=== PATIENT | male | born 1980 | race Caucasian/White ===

== ENCOUNTER → 2016-09-06 | Day surgery (SDC) | payer BC, OTHER ==
[~2016-09-06] MED LIST: Diphtheria,Pertussis(Acell),Tetanus Vaccine 0.5 ML SDV inactive IM ONE; HYDROmorphone 0.5 MG/0.5 ML Syringe IM ONE; Ketorolac 30 MG/ML SDV IVPUSH PRN; Lactated Ringers 1,000 ML ONE; Lidocaine 1% 4 ML ONE; Midazolam 1 MG/ML 2 ML SDV ONE; Ondansetron 4 MG/2 ML SDV ONE; Propofol 200 MG/20 ML SDV ONE; Rocuronium 50 MG/5 ML Vial ONE; Sodium Chloride 0.9% 10 ML Syringe FLUSH PRN; ceFAZolin 1 GM Vial ONE; ceFAZolin 1 GM in Premix Bag 1 BAG IV ONE; fentaNYL 250 MCG/5 ML SDV IVPUSH PRN; fentaNYL 250 MCG/5 ML SDV ONE
--- NOTE | 2016-09-06 15:07 | EDM.PDOC ---
ED HPI Skin/Rash - General Chief Complaint: Laceration Stated Complaint: RIGHT ARM INJURY Time Seen by Provider: 09/06/16 14:50 Source: Reports: Patient History Limitations: Reports: No limitations - History of Present Illness INITIAL COMMENTS - FREE TEXT/NARRATIVE: Patient is a 35-year-old male who presents to the ED complaining of a deep laceration to the medial aspect of the right forearm. 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 States while attempting to catch himself the injured arm fell on a piece of metal used for grain bins causing the deep laceration. States the laceration bled for quite some time controlled with dressing and direct pressure. Patient denies any sensory/motor deficits distally. Has additional small laceration to the olecranon with bleeding controlled. Notes some bony tenderness. Tetanus status is not up to date. Location, Skin: Reports: other (right medial forearm) Quality: Reports: Ache, Sharp, Throbbing Severity: moderate Known Identified Source: yes Place of Occurrence: work Recent Medical Care: no Treatments SCIENTIFIC ARTIST: Reports: Dressing(s) - Related Data Allergies Allergy/AdvReac Type Severity Reaction Status Date / Time No Known Allergies Allergy Verified 09/06/16 14:27 Home Meds: Ambulatory Orders Medication Instructions Recorded Confirmed Omeprazole 40 mg PO DAILY 06/11/16 09/06/16 Prazosin [Minpress] 1 mg PO DAILY 06/11/16 09/06/16 traMADol [Ultram] 50 mg PO Q8H 06/11/16 09/06/16 Antidepressant 1 tab PO DAILY 09/06/16 09/06/16 Cyclobenzaprine [Flexeril] 10 mg PO BEDTIME 09/06/16 09/06/16 Past Medical History HEENT History: Reports: Impaired vision Respiratory History: Reports: Bronchitis, recurrent Genitourinary History: Reports: Other (see below) Other Genitourinary History: states only one kidney working Musculoskeletal History: Reports: Back pain, chronic, SLE, Other (see below) Other Musculoskeletal History: Scoliosis Psychiatric History: Reports: Anxiety, Depression, PTSD Dermatologic History: Reports: Eczema, Psoriasis - Past Surgical History GI Surgical History: Reports: Hernia, abdominal, Hernia, inguinal Male Surgical History: Reports: Other (see below) Other Male Surgeries/Procedures: detached left kidney, 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 ) Neurological: Denies: Numbness, Tingling ED EXAM, SKIN/RASH Exam: See Below Exam Limited By: No limitations General Appearance: alert, WD/WN, no apparent distress Ears: hearing grossly normal Nose: normal inspection Throat/Mouth: Normal voice, No airway compromise Neck: normal inspection Respiratory/Chest: no respiratory distress, lungs clear, normal breath sounds Cardiovascular: normal peripheral pulses, regular rate, rhythm Extremities: other (Patient is a deep 16 cm laceration to the right medial forearm involving the body of flexor digitorum super facialis. Patient able to flex and extend his hand at the wrist along with full extension. In addition is able to flex and extend his fingers fully with no animality is noted. He has no bony point tenderness. Approximately 2-3 cm laceration to the olecranon. ) Neurological: alert, oriented, normal cognition, no motor/sensory deficits Psychiatric: normal affect, normal mood Skin: Warm, Dry, Intact, Normal color Course - Vital Signs Last Recorded V/S: Last Vital Signs Temp 207.0 F H 09/06/16 18:21 Pulse 81 09/06/16 17:48 Resp 18 09/06/16 18:21 BP 134/87 09/06/16 18:21 Pulse Ox 96 09/06/16 18:21 - Orders/Labs/Meds Orders: Active Orders 24 hr Category Date Time Status Communication Order [RC] ROUTINE Care 09/06/16 17:44 Active Cooling Warming Measures [RC] ASDIRECTED Care 09/06/16 17:44 Active Notify Provider [RC] ASDIRECTED Care 09/06/16 17:44 Active Oxygen Therapy [RC] ASDIRECTED Care 09/06/16 17:44 Active Peripheral IV Care [RC] . DIRECTED Care 09/06/16 15:01 Active Pulse Oximetry [RC] ASDIRECTED Care 09/06/16 17:44 Active Ready for Discharge [RC] PER UNIT ROUTINE Care 09/06/16 17:49 Active Vaccines to be Administered [RC] PER UNIT ROUTINE Care 09/06/16 15:01 Active Vital Signs [RC] Q15M Care 09/06/16 17:44 Active Elbow Min 3V Rt [CR] Stat Exams 09/06/16 15:25 Taken HEMOGLOBIN/HEMATOCRIT,HH [HEME] Routine Lab 09/06/16 17:21 Ordered Ketorolac [Toradol] Med 09/06/16 17:45 Active 30 mg IVPUSH ONETIME PRN fentaNYL [Sublimaze] Med 09/06/16 17:45 Active 50 mcg IVPUSH Q5M PRN Peripheral IV Insertion Adult [OM.PC] Routine Oth 09/06/16 15:00 Ordered Schedule Procedure [COMM] Stat Oth 09/06/16 16:20 Ordered Medication Orders Fentanyl (Sublimaze) 50 mcg IVPUSH Q5M PRN PRN Reason: PAIN Ketorolac Tromethamine (Toradol) 30 mg IVPUSH ONETIME PRN PRN Reason: Pain Meds: Medications Generic Name Dose Route Start Last Admin Trade Name Freq PRN Reason Stop Dose Admin Fentanyl 50 mcg 09/06/16 17:45 Sublimaze IVPUSH Q5M PRN PAIN Ketorolac Tromethamine 30 mg 09/06/16 17:45 Toradol IVPUSH ONETIME PRN Pain Discontinued Medications Generic Name Dose Route Start Last Admin Trade Name Freq PRN Reason Stop Dose Admin Bupivacaine HCl Confirm 09/06/16 16:57 09/06/16 17:40 Marcaine 0.5% Administered 09/06/16 16:58 7 ml Dose Administration 30 ml .ROUTE .STK-MED ONE Cefazolin Sodium Confirm 09/06/16 16:58 Ancef Administered 09/06/16 16:59 Dose 1 gm .ROUTE .STK-MED ONE Diphtheria/Tetanus/Acell Pertussis 0.5 ml 09/06/16 15:00 09/06/16 15:14 Boostrix IM 09/06/16 15:01 0.5 ml .ONCE ONE Administration Fentanyl Confirm 09/06/16 16:22 Sublimaze Administered 09/06/16 16:23 Dose 250 mcg .ROUTE .STK-MED ONE Hydromorphone HCl 0.5 mg 09/06/16 15:00 09/06/16 15:17 Dilaudid IM 09/06/16 15:01 0.5 mg ONETIME ONE Administration Cefazolin Sodium/Dextrose 1 gm 50 mls @ 100 mls/hr 09/06/16 15:13 09/06/16 15 :31 / Premix IV 09/06/16 15:42 100 mls/hr ONETIME ONE Administration Lidocaine HCl Confirm 09/06/16 16:22 Xylocaine-Mpf 1% Administered 09/06/16 16:23 Dose 4 mls @ as directed .ROUTE .STK-MED ONE Lactated Ringer's Confirm 09/06/16 16:58 Ringers, Lactated Administered 09/06/16 16:59 Dose 1,000 mls @ as directed .ROUTE .STK-MED ONE Lactated Ringer's Confirm 09/06/16 17:28 Ringers, Lactated Administered 09/06/16 17:29 Dose 1,000 mls @ as directed .ROUTE .STK-MED ONE Midazolam HCl Confirm 09/06/16 16:22 Versed 1 Mg/Ml Administered 09/06/16 16:23 Dose 2 mg .ROUTE .STK-MED ONE Ondansetron HCl Confirm 09/06/16 16:21 Zofran Administered 09/06/16 16:22 Dose 4 mg .ROUTE .STK-MED ONE Propofol Confirm 09/06/16 16:21 Diprivan 20 Ml Administered 09/06/16 16:22 Dose 200 mg .ROUTE .STK-MED ONE Propofol Confirm 09/06/16 17:01 Diprivan 20 Ml Administered 09/06/16 17:02 Dose 200 mg .ROUTE .STK-MED ONE Propofol Confirm 09/06/16 17:27 Diprivan 20 Ml Administered 09/06/16 17:28 Dose 200 mg .ROUTE .STK-MED ONE Rocuronium [place] Confirm 09/06/16 16:21 Zemuron Administered 09/06/16 16:22 Dose 50 mg .ROUTE .STK-MED ONE Sodium Chloride 10 ml 09/06/16 15:00 09/06/16 15:33 Saline Flush FLUSH 09/06/16 19:00 10 ml ASDIRECTED PRN Administration Keep Vein Open - Re-Assessments/Exams Free Text/Narrative Re-Assessment/Exam: Order a peripheral IV with Dilaudid 0.5 mg IV. Discussed case with Dr. 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 He will be here at 1600 hours to evaluate the lacerations and determine if patient needs to go to surgery or not to close. Requested IV antibiotics. I have ordered Ancef 1 g IV. X-ray of the right elbow obtained with questionable avulsion fracture present. Final interpretation pending. 09/06/16 15:13 evaluated the patient in the E.D. and has deemed it necessary to take the patient to the OR to surgically repair laceration. Patient went to the surgery at approximately 1625. Departure - Departure Time of Disposition: 16:25 Disposition: DC/Tfer to Critical Access [facility] Clinical Impression: Laceration of forearm, right Qualifiers: Encounter type: initial encounter Qualified Code(s): S51.811A - Laceration without foreign body of right forearm, initial encounter - My Orders Last 24 Hours: My Active Orders 09/06/16 15:00 Peripheral IV Insertion Adult [OM.PC] Routine 09/06/16 15:01 Peripheral IV Care [RC] . DIRECTED Vaccines to be Administered [RC] PER UNIT ROUTINE 09/06/16 15:25 Elbow Min 3V Rt [CR] Stat - Assessment/Plan Last 24 Hours: My Active Orders 09/06/16 15:00 Peripheral IV Insertion Adult [OM.PC] Routine 09/06/16 15:01 Peripheral IV Care [RC] . DIRECTED Vaccines to be Administered [RC] PER UNIT ROUTINE 09/06/16 15:25 Elbow Min 3V Rt [CR] Stat
[2016-09-06] MEDS: Bupivacaine 0.5% 30 ML SDV ONE ×2 (17:22→17:40)
--- NOTE | 2016-09-06 17:46 | PCM.POSTAN ---
POST ANESTHESIA ASSESSMENT - MENTAL STATUS Mental Status: somnolent - VITAL SIGNS Pulse Rate: 81 SaO2: 90 Resp Rate: 11 Blood Pressure: 122/61 Temperature: 97.1 C - RESPIRATORY Respiratory Status: respiratory rate WNL, airway patent, O2 saturation stable, supplemental oxygen - CARDIOVASCULAR CV Status: pulse rate WNL, blood pressure stable - GASTROINTESTINAL GI Status: no symptoms - PAIN Pain Score: 0 - POST OP HYDRATION Hydration Status: adequate & stable - OBSERVATIONS Free Text/Narrative:: no anesthesia complications noted
--- NOTE | 2016-09-06 17:48 | PCM.OPNOTE ---
- General Post-Op/Procedure Note Date of Surgery/Procedure: 09/06/16 Operative Procedure(s): repair of laceration of the rt arm Pre Op Diagnosis: laceration of the rt forearm and into the flexor carpi ulnaris Post-Op Diagnosis: Same Anesthesia Technique: MAC Primary Surgeon: James Thomas EBL in mLs: 0 Complications: None Condition: Good
--- NOTE | 2016-09-06 17:48 | PCM.PREANE ---
Preanesthetic Assessment - Anesthesia/Transfusion/Family Hx Anesthesia History: Prior Anesthesia Without Reaction Family History of Anesthesia Reaction: No Transfusion History: No Prior Transfusion(s) - Review of Systems General: No Symptoms Pulmonary: No Symptoms Cardiovascular: No Symptoms Gastrointestinal: No symptoms Neurological: Numbness (right arm) Other: Reports: None - Physical Assessment NPO Status Date: 09/06/16 NPO Status Time: 18:30 Pulse: 81 O2 Sat by Pulse Oximetry: 90 Respiratory Rate: 11 Blood Pressure: 122/61 Temperature: 97.1 C Vital Signs: Last Vital Signs Temp 97.1 C H 09/06/16 17:46 Pulse 81 09/06/16 17:46 Resp 11 L 09/06/16 17:46 BP 122/61 09/06/16 17:46 Pulse Ox 90 L 09/06/16 17:46 Height: 1.88 m Weight: 73.028 kg ASA Class: 2E Mental Status: Alert & Oriented x3 Dentition: Reports: Normal Dentition Thyro-Mental Finger Breadths: 3 Mouth Opening Finger Breadths: 3 ROM/Head Extension: Full Lungs: Clear to auscultation, Normal respiratory effort Cardiovascular: Regular Rate, Regular Rhythm, No Murmurs - Allergies Allergies/Adverse Reactions: Allergies Allergy/AdvReac Type Severity Reaction Status Date / Time No Known Allergies Allergy Verified 09/06/16 14:27 - Blood Blood Available: No Product(s) Available: None - Anesthesia Plan Pre-Op Medication Ordered: None - Acknowledgements Anesthesia Type Planned: MAC Pt an Appropriate Candidate for the Planned Anesthesia: Yes Alternatives and Risks of Anesthesia Discussed w Pt/Guardian: Yes Pt/Guardian Understands and Agrees with Anesthesia Plan: Yes PreAnesthesia Questionnaire HEENT History: Reports: Impaired vision Respiratory History: Reports: Bronchitis, recurrent Genitourinary History: Reports: Other (see below) Other Genitourinary History: states only one kidney working Musculoskeletal History: Reports: Back pain, chronic, SLE, Other (see below) Other Musculoskeletal History: Scoliosis Psychiatric History: Reports: Anxiety, Depression, PTSD Dermatologic History: Reports: Eczema, Psoriasis - Past Surgical History GI Surgical History: Reports: Hernia, abdominal, Hernia, inguinal Male Surgical History: Reports: Other (see below) Other Male Surgeries/Procedures: detached left kidney, 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 - SUBSTANCE USE Smoking Status *Q: Current Every Day Smoker Tobacco Use Within Last Twelve Months: Cigarettes Days Per Week of Alcohol Use: 0 Recreational Drug Use History: No - HOME MEDS Home Medications: Home Meds Omeprazole 40 mg PO DAILY 06/11/16 [History] Prazosin [Minpress] 1 mg PO DAILY 06/11/16 [History] traMADol [Ultram] 50 mg PO Q8H 06/11/16 [History] Antidepressant 1 tab PO DAILY 09/06/16 [History] Cyclobenzaprine [Flexeril] 10 mg PO BEDTIME 09/06/16 [History] - CURRENT (IN HOUSE) MEDS Current Meds: Current Medications Fentanyl (Sublimaze) 50 mcg IVPUSH Q5M PRN PRN Reason: PAIN Ketorolac Tromethamine (Toradol) 30 mg IVPUSH ONETIME PRN PRN Reason: Pain Sodium Chloride (Saline Flush) 10 ml FLUSH ASDIRECTED PRN PRN Reason: Keep Vein Open Stop: 09/06/16 19:00 Last Admin: 09/06/16 15:33 Dose: 10 ml Discontinued Medications Bupivacaine HCl (Marcaine 0.5%) Confirm Administered Dose 30 ml .ROUTE .STK-MED ONE Stop: 09/06/16 16:58 Last Admin: 09/06/16 17:22 Dose: 30 ml Cefazolin Sodium (Ancef) Confirm Administered Dose 1 gm .ROUTE .STK-MED ONE Stop: 09/06/16 16:59 Diphtheria/Tetanus/Acell Pertussis (Boostrix) 0.5 ml IM .ONCE ONE Stop: 09/06/16 15:01 Last Admin: 09/06/16 15:14 Dose: 0.5 ml Fentanyl (Sublimaze) Confirm Administered Dose 250 mcg .ROUTE .STK-MED ONE Stop: 09/06/16 16:23 Hydromorphone HCl (Dilaudid) 0.5 mg IM ONETIME ONE Stop: 09/06/16 15:01 Last Admin: 09/06/16 15:17 Dose: 0.5 mg Cefazolin Sodium/Dextrose 1 gm (/ Premix) 50 mls @ 100 mls/hr IV ONETIME ONE Stop: 09/06/16 15:42 Last Admin: 09/06/16 15:31 Dose: 100 mls/hr Lidocaine HCl (Xylocaine-Mpf 1%) Confirm Administered Dose 4 mls @ as directed .ROUTE .STK-MED ONE Stop: 09/06/16 16:23 Lactated Ringer's (Ringers, Lactated) Confirm Administered Dose 1,000 mls @ as directed .ROUTE .STK-MED ONE Stop: 09/06/16 16:59 Lactated Ringer's (Ringers, Lactated) Confirm Administered Dose 1,000 mls @ as directed .ROUTE .STK-MED ONE Stop: 09/06/16 17:29 Midazolam HCl (Versed 1 Mg/Ml) Confirm Administered Dose 2 mg .ROUTE .STK-MED ONE Stop: 09/06/16 16:23 Ondansetron HCl (Zofran) Confirm Administered Dose 4 mg .ROUTE .STK-MED ONE Stop: 09/06/16 16:22 Propofol (Diprivan 20 Ml) Confirm Administered Dose 200 mg .ROUTE .STK-MED ONE Stop: 09/06/16 16:22 Propofol (Diprivan 20 Ml) Confirm Administered Dose 200 mg .ROUTE .STK-MED ONE Stop: 09/06/16 17:02 Propofol (Diprivan 20 Ml) Confirm Administered Dose 200 mg .ROUTE .STK-MED ONE Stop: 09/06/16 17:28 Rocuronium [place] (Zemuron) Confirm Administered Dose 50 mg .ROUTE .STK-MED ONE Stop: 09/06/16 16:22 Preanesthetic Assessment - REVIEW OF SYSTEMS Constitutional: Reports: no symptoms 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
[2016-09-06 18:22] VITALS: BP 134/87
--- NOTE | 2016-09-06 21:34 | HP ---
DATE OF ADMISSION: 09/06/2016 HISTORY OF PRESENT ILLNESS: This is a 35-year-old male who sustained on work place a laceration from a piece of tin on the medial side of his right arm. The patient says he lost some blood, but he came in the emergency room and the emergency room physician had noted that there is no numbness and weakness demonstrated in the hand. X-rays were obtained in the elbow and did not show any fractures outside of the laceration. Because of the involvement of the flexor carpi ulnaris muscle, asked me to see the patient concerning injuries of any arteries and nerves in that vicinity. PAST MEDICAL HISTORY: Smoking history, history of bronchitis, chronic back pain, anxiety and depression, and ordered PTSD. CURRENT MEDICATIONS: Per medication reconciliation form noted. FAMILY HISTORY: Anxiety. SOCIAL HISTORY: He does smoke. No drug use and no alcohol use. REVIEW OF SYSTEMS: No chest pain, shortness of breath, cough, hoarseness, wheezing, fainting, weakness, numbness, convulsions, nausea, vomiting, and indigestion. Does have some pain at the laceration site. On examination shows a laceration approximately 8 cm on the medial side of his proximal right forearm and goes transversely and has exposed the flexor carpi ulnaris. There is some slight tingling in the finger tips of the 1st 3 fingers of the right hand. There is good fanning function and opposition function of the fingers and thumb. There is no profundus or superficial tendon, weakness on examination of each fingers. No ulnar numbness noted. 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 PHYSICAL EXAMINATION: EYES: Sclerae white. Extraocular muscle motion normal. Oral cavity healthy. NECK: Supple. LUNGS: Clear, but distant breath sounds. HEART: Tones regular rate. ABDOMEN: Soft. EXTREMITIES: Upper extremities as detailed above. Noticed that there is no excessive dirt in the wound noted. Lower extremities unremarkable. NEUROLOGIC: Grade 3 through 12 intact. PSYCHIATRIC: He is alert, cooperative, normal affect. ASSESSMENT: 1. Smoking history. 2. Laceration on the medial side of his right forearm near the elbow exposing the flexor carpi ulnaris muscle, which has been lacerated. Some numbness in the finger tips in the media nerve distribution. No pulsatile vessels noted in that wound. PLAN: Bring the patient to the operating room, explore the wound. Risk and complications were discussed with the patient. He understands and consents. ALEKSANDAR /[id number]
--- NOTE | 2016-09-07 07:13 | OR ---
DATE OF OPERATION: 09/06/2016 SURGEON: James Thomas MD PREOPERATIVE DIAGNOSIS: Laceration in medial aspect of his proximal right forearm. POSTOPERATIVE DIAGNOSIS: Laceration in medial aspect of his proximal right forearm. OPERATION PERFORMED: Repair done under IV sedation. FINDINGS: A 9 cm transverse laceration that extended through the epidermis, through the fat and into the muscle of the flexor carpi ulnaris. Exploration did not show any major nerve damage other than the superficial veins in the subcuticular tissue. The wound was clean and free of any excessive dirt. Then the muscle itself was only partially cut into the muscle belly, but not completely through it. DESCRIPTION OF PROCEDURE: The patient was taken to the operating room, placed in a supine position. Antibiotics were given. After sedation was given, the tourniquet was placed, but not inflated. The arm was then prepped with Betadine and draped off in a sterile fashion. The superficial veins were then clamped and tied off with 3-0 Vicryl suture and then exploration was then performed of the muscle itself, demonstrating that the incision went through the muscle belly of the flexor carpi ulnaris, but not completely throughout. Exploration was performed and then irrigated with Pulsavac and then fascia of the muscle was then closed with interrupted 4-0 Vicryl suture ascertaining no major vessels were identified or being damaged. The subcuticular tissue was brought together with interrupted 4- 0 Vicryl suture and the skin with interrupted 4-0 Prolene suture. Another laceration was noted on the elbow measuring 2.5 cm and this was closed in layers after exploring it and closing it, 1st the subcuticular tissue with 4-0 Vicryl suture and the skin with 4-0 nylon suture. Splint was then placed to immobilize the elbow and the wrist and this was a cast splint that was held in position with an Luis wrap. Arm was elevated in a sling. The patient tolerated the procedure and will be followed up in the outpatient setting. ANESTHESIA: ESTIMATED BLOOD LOSS: 100 mL. MMODAL /[id number]
--- NOTE | 2016-09-07 08:03 | CR ---
Right elbow: Four views of the right elbow were obtained utilizing portable technique. Soft tissue injury seen within the proximal forearm along the medial aspect. Several small radiopacities are projected within the soft tissues and difficult to exclude foreign body. Several calcifications are seen off the posterior and medial elbow felt to represent old calcific tendinitis. No acute fracture or other bony abnormality is seen. Impression: 1. Soft tissue injury with several small radiopacities possibly due to foreign body. 2. Other incidental findings. No acute bony abnormality is identified. Diagnostic code #3
== END | disposition home or self-care (01) ==
LOC: JD.SDS 14:05
PROVIDERS: ATTEND Surgery
DX: S51.811A Laceration without foreign body of right forearm, initial encounter (principal); S51.011A Laceration without foreign body of right elbow, initial encounter
CPT/HCPCS: 12034; 73080; 90471; 96365; 96372; 99284; J0690; J1170; J2250; J2405; J3010; J7050; J7120; 00400; 90715; J2704

== ENCOUNTER 2017-12-21 12:11 | Emergency (ER) | payer OTHER, BC ==
--- NOTE | 2017-12-21 12:46 | EDM.PDOC ---
<Lori Ivey M - Last Filed: 12/21/17 14:47> ED HPI GENERAL MEDICAL PROBLEM - General Chief Complaint: Flank Pain Stated Complaint: SIDE PAIN Time Seen by Provider: 12/21/17 12:40 Source of Information: Reports: Patient, Family () History Limitations: Reports: No Limitations - History of Present Illness INITIAL COMMENTS - FREE TEXT/NARRATIVE: Flip is a 37yo male brought in by after suffering a fall while at work , [employer], earlier today. 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 He slipped with his footing as it is muddy from recent rains, fell onto the pipe on his right side/flank. He got up "stretched a little and went back to work". He had pain to his right side that was quite bad. Around 1030 he urinated bright red urine with terrible pain to his right flank/side. He came to the ER for evaluation. Pain is 8-9/10 on arrival. 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 PCP is Dr. Arteaga with the [facility] here in [place]. Dr. Magana did see and examine patient upon his arrival to ED. Onset: Today, Sudden Duration: Day(s): (3.5 hrs) Location: Reports: Abdomen (right flank) Severity: Severe Improves with: Reports: Rest Worsens with: Reports: Other (urinating), Movement Context: Reports: Trauma (fall onto pipe) Associated Symptoms: Denies: Chest Pain, Diaphoresis, Fever/Chills, Headaches, Nausea/Vomiting, Shortness of Breath Treatments BOTTLE CASER: Reports: Other (see below) (none) - Related Data Allergies Allergy/AdvReac Type Severity Reaction Status Date / Time No Known Allergies Allergy Verified 09/06/16 14:27 Home Meds: Home Meds Omeprazole 40 mg PO DAILY 06/11/16 [History] traMADol [Ultram] 50 mg PO Q8H 06/11/16 [History] Citalopram Hydrobromide [Celexa] 0 mg PO DAILY 12/21/17 [History] Methocarbamol 750 mg PO Q6H PRN 12/21/17 [History] ED ROS GENERAL - Review of Systems Review Of Systems: See Below Constitutional: Reports: No Symptoms HEENT: Reports: No Symptoms Respiratory: Reports: Shortness of Breath (due to pain). Denies: Wheezing, Cough Cardiovascular: Reports: No Symptoms. Denies: Chest Pain Endocrine: Reports: No Symptoms GI/Abdominal: Reports: Abdominal Pain (right flank pain), Nausea. Denies: Constipation, Diarrhea : Reports: Hematuria, Pain (wtih urination) Musculoskeletal: Reports: Other (flank pain as noted above and in HPI) Skin: Reports: No Symptoms Neurological: Reports: No Symptoms, Headache Psychiatric: Reports: No Symptoms Hematologic/Lymphatic: Reports: No Symptoms. Denies: Anemia ED EXAM,LOWER BACK PAIN/INJURY - Physical Exam Exam: See Below Exam Limited By: No Limitations General Appearance: Alert, WD/WN, No Apparent Distress Eye Exam: Bilateral Eye: EOMI, PERRL Ears: Normal External Exam, Hearing Grossly Normal Nose: Normal Inspection Throat/Mouth: Normal Inspection, Normal Voice, No Airway Compromise, Other ( teeth in poor repair/poor dentition) Head: Atraumatic, Normocephalic Neck: Normal Inspection, Supple, Non-Tender Respiratory/Chest: No Respiratory Distress, Lungs Clear, Normal Breath Sounds Cardiovascular: Regular Rate, Rhythm, No Edema, No Murmur GI/Abdominal: Normal Bowel Sounds, Soft, Tender (right abdomen with any amt of palpation and to right flank). No: Guarding, Rigid, Rebound (Male) Exam: Deferred Rectal (Males) Exam: Deferred Back Exam: CVA Tenderness (R), Other (2cm superficial scrape to right flank) Extremities: Normal Inspection, Normal Capillary Refill Neurological: Alert, Normal Mood/Affect, Oriented x 3 Psychiatric: Normal Affect, Normal Mood, Anxious Skin Exam: Warm, Dry, Intact, Other (superficial abrasion to right flank, 2cm in length) Course - Vital Signs Last Recorded V/S: Last Vital Signs Temp 37.5 C 12/21/17 15:45 Pulse 58 L 12/21/17 15:45 Resp 12 12/21/17 15:45 BP 122/74 12/21/17 15:45 Pulse Ox 98 12/21/17 15:45 - Orders/Labs/Meds Labs: Laboratory Tests 12/21/17 12/21/1718 Range/Units 12:50 12:55 12:55 WBC 12.64 H (4.23-9.07) K/mm3 RBC 4.35 L (4.63-6.08) M/mm3 Hgb 13.9 (13.7-17.5) gm/L Hct 42.1 (40.1-51.0) % MCV 96.8 H (79.0-92.2) fl MCH 32.0 (25.7-32.2) pg MCHC 33.0 (32.2-35.5) g/dl RDW Std Deviation 46.4 H (35.1-43.9) fL Plt Count 229 (163-337) K/mm3 MPV 10.5 (9.4-12.3) fl Neut % (Auto) 69.7 H (34.0-67.9) % Lymph % (Auto) 21.8 (21.8-53.1) % Clarke % (Auto) 6.1 (5.3-12.2) % Eos % (Auto) 1.7 (0.8-7.0) Baso % (Auto) 0.5 (0.1-1.2) % Neut # (Auto) 8.81 H (1.78-5.38) K/mm3 Lymph # (Auto) 2.76 (1.32-3.57) K/mm3 Clarke # (Auto) 0.77 (0.30-0.82) K/mm3 Eos # (Auto) 0.22 (0.04-0.54) K/mm3 Baso # (Auto) 0.06 (0.01-0.08) K/mm3 Sodium 142 (136-145) mEq/L Potassium 3.8 (3.5-5.1) mEq/L Chloride 105 (98-107) mEq/L Carbon Dioxide 25 (21-32) mEq/L Anion Gap 15.8 H (5-15) BUN 24 H (7-18) mg/dL Creatinine 1.4 H (0.7-1.3) mg/dL Est Cr Clr Drug Dosing 75.81 mL/min Estimated GFR (MDRD) 57 (>60) mL/min BUN/Creatinine Ratio 17.1 (14-18) Glucose 96 (74-106) mg/dL Calcium 9.1 (8.5-10.1) mg/dL Total Bilirubin 0.6 (0.2-1.0) mg/dL AST 29 (15-37) U/L ALT 26 (16-63) U/L Alkaline Phosphatase 79 (46-116) U/L Total Protein 6.8 (6.4-8.2) g/dl Albumin 3.9 (3.4-5.0) g/dl Globulin 2.9 gm/dL Albumin/Globulin Ratio 1.3 (1-2) Urine Color Brown H (Yellow) Urine Appearance Cloudy H (Clear) Urine pH 5.5 (5.0-8.0) Ur Specific [place] 1.020 (1.005-1.030) Urine Protein 3+ H (Negative) Urine Glucose (UA) Negative (Negative) Urine Ketones 1+ H (Negative) Urine Occult Blood 3+ H (Negative) Urine Nitrite Negative (Negative) Urine Bilirubin 3+ H (Negative) Urine Urobilinogen 2.0 H (0.2-1.0) Ur Leukocyte Esterase 3+ H (Negative) Urine RBC Too numerous to cnt H (0-5) /hpf Urine WBC See comment (0-5) /hpf Ur Epithelial Cells Not seen (0-5) /hpf Urine Bacteria Not seen (FEW) /hpf Urine Mucus Not seen (FEW) /hpf Blood Type Gel Antibody Screen 12/21/17 Range/Units 12:55 WBC (4.23-9.07) K/mm3 RBC (4.63-6.08) M/mm3 Hgb (13.7-17.5) gm/L Hct (40.1-51.0) % MCV (79.0-92.2) fl MCH (25.7-32.2) pg MCHC (32.2-35.5) g/dl RDW Std Deviation (35.1-43.9) fL Plt Count (163-337) K/mm3 MPV (9.4-12.3) fl Neut % (Auto) (34.0-67.9) % Lymph % (Auto) (21.8-53.1) % Clarke % (Auto) (5.3-12.2) % Eos % (Auto) (0.8-7.0) Baso % (Auto) (0.1-1.2) % Neut # (Auto) (1.78-5.38) K/mm3 Lymph # (Auto) (1.32-3.57) K/mm3 Clarke # (Auto) (0.30-0.82) K/mm3 Eos # (Auto) (0.04-0.54) K/mm3 Baso # (Auto) (0.01-0.08) K/mm3 Sodium (136-145) mEq/L Potassium (3.5-5.1) mEq/L Chloride (98-107) mEq/L Carbon Dioxide (21-32) mEq/L Anion Gap (5-15) BUN (7-18) mg/dL Creatinine (0.7-1.3) mg/dL Est Cr Clr Drug Dosing mL/min Estimated GFR (MDRD) (>60) mL/min BUN/Creatinine Ratio (14-18) Glucose (74-106) mg/dL Calcium (8.5-10.1) mg/dL Total Bilirubin (0.2-1.0) mg/dL AST (15-37) U/L ALT (16-63) U/L Alkaline Phosphatase (46-116) U/L Total Protein (6.4-8.2) g/dl Albumin (3.4-5.0) g/dl Globulin gm/dL Albumin/Globulin Ratio (1-2) Urine Color (Yellow) Urine Appearance (Clear) Urine pH (5.0-8.0) Ur Specific [place] (1.005-1.030) Urine Protein (Negative) Urine Glucose (UA) (Negative) Urine Ketones (Negative) Urine Occult Blood (Negative) Urine Nitrite (Negative) Urine Bilirubin (Negative) Urine Urobilinogen (0.2-1.0) Ur Leukocyte Esterase (Negative) Urine RBC (0-5) /hpf Urine WBC (0-5) /hpf Ur Epithelial Cells (0-5) /hpf Urine Bacteria (FEW) /hpf Urine Mucus (FEW) /hpf Blood Type A POSITIVE Gel Antibody Screen Negative Meds: Medications Discontinued Medications Generic Name Dose Route Start Last Admin Trade Name Freq PRN Reason Stop Dose Admin Hydromorphone HCl 1 mg 12/21/17 12:48 12/21/17 13:00 Dilaudid IVPUSH 12/21/17 12:49 1 mg ONETIME STA Administration Hydromorphone HCl 1 mg 12/21/17 14:42 12/21/17 14:48 Dilaudid IVPUSH 12/21/17 14:43 1 mg ONETIME ONE Administration Sodium Chloride 1,000 mls @ 150 mls/hr 12/21/17 13:00 12/21/17 13:03 Normal Saline IV 150 mls/hr ASDIRECTED [place] Administration Sodium Chloride 1,000 mls @ 250 mls/hr 12/21/17 13:17 Normal Saline IV 12/21/17 17:16 ONETIME ONE Iopamidol 100 ml 12/21/17 13:49 12/21/17 14:02 Isovue-300 (61%) IVPUSH 12/21/17 13:50 100 ml ONETIME ONE Administration Ondansetron HCl 4 mg 12/21/17 12:48 12/21/17 12:58 Zofran IVPUSH 12/21/17 12:49 4 mg ONETIME ONE Administration Sodium Chloride 10 ml 12/21/17 13:49 12/21/17 14:02 Saline Flush FLUSH 12/21/17 13:50 10 ml ONETIME ONE Administration - Radiology Interpretation Free Text/Narrative:: Creatinine at prior ED visit was 1.3 with GFR >60. Awaiting labs today, then will proceed with CT abd/pelvis with contrast. Reviewed with Dr. Magana and Dr. Dawkins who both agree and recommend CT abd/pelvis with IV contrast to r/o fracture of kidney. Reviewed with patient and and both are in agreement to proceed with CT with contrast. - Re-Assessments/Exams Free Text/Narrative Re-Assessment/Exam: 12/21/17 14:46 CT scan returned, reviewed with Dr. Dawkins without evidence of acute/obvious injury, likely contusion to flank/kidney. Patient with increasing pain, dilaudid 1mg IVP ordered. Departure - Departure Disposition: Home, Self-Care 01 Condition: Good Clinical Impression: Contusion of right kidney Qualifiers: Encounter type: initial encounter Qualified Code(s): S37.011A - Minor contusion of right kidney, initial encounter - Discharge Information Instructions: Flank Pain, Adult, [id number] Referrals: Bety Arteaga DO [Primary Care Provider] - Forms: ED Department Discharge Additional Instructions: Your CT scan of abdomen pelvis was normal today. You have a contusion or bruise to your flank/kidney. Your labs were essential normal. Recommend push fluids, avoid/minimal caffeine, no energy drinks or soda Tylenol if needed for pain, prescription for hydrocodone for pain and zofran for nausea have been written if needed. You can use heat or cold compresses to your side/flank if needed for comfort. Blood will likely be present in your urine for 2-5 days, continue to push fluids. Follow up with your primary care provider within 5 days for recheck - would recommend recheck of kidney function test at that time. Recommend no work for the next 48 hours, avoid lifting, pushing, pulling carrying anything >20lbs for the next week then ease back into usual activities. 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 Musculoskeletal History: Reports: Back Pain, Chronic, SLE Other Musculoskeletal History: Scoliosis Psychiatric History: Reports: Anxiety, Depression, PTSD Dermatologic History: Reports: Eczema, Psoriasis - Past Surgical History GI Surgical History: Reports: Hernia, Abdominal, Hernia, Inguinal Social & Family History - Family History Family Medical History: Noncontributory Psychiatric: Reports: Anxiety - Caffeine Use Caffeine Use: Reports: Soda Course - Orders/Labs/Meds Labs: Laboratory Tests 12/21/17 12/21/17 12/21/17 Range/Units 12:50 12:55 12:55 WBC 12.64 H (4.23-9.07) K/mm3 RBC 4.35 L (4.63-6.08) M/mm3 Hgb 13.9 (13.7-17.5) gm/L Hct 42.1 (40.1-51.0) % MCV 96.8 H (79.0-92.2) fl MCH 32.0 (25.7-32.2) pg MCHC 33.0 (32.2-35.5) g/dl RDW Std Deviation 46.4 H (35.1-43.9) fL Plt Count 229 (163-337) K/mm3 MPV 10.5 (9.4-12.3) fl Neut % (Auto) 69.7 H (34.0-67.9) % Lymph % (Auto) 21.8 (21.8-53.1) % Clarke % (Auto) 6.1 (5.3-12.2) % Eos % (Auto) 1.7 (0.8-7.0) Baso % (Auto) 0.5 (0.1-1.2) % Neut # (Auto) 8.81 H (1.78-5.38) K/mm3 Lymph # (Auto) 2.76 (1.32-3.57) K/mm3 Clarke # (Auto) 0.77 (0.30-0.82) K/mm3 Eos # (Auto) 0.22 (0.04-0.54) K/mm3 Baso # (Auto) 0.06 (0.01-0.08) K/mm3 Sodium 142 (136-145) mEq/L Potassium 3.8 (3.5-5.1) mEq/L Chloride 105 (98-107) mEq/L Carbon Dioxide 25 (21-32) mEq/L Anion Gap 15.8 H (5-15) BUN 24 H (7-18) mg/dL Creatinine 1.4 H (0.7-1.3) mg/dL Est Cr Clr Drug Dosing 75.81 mL/min Estimated GFR (MDRD) 57 (>60) mL/min BUN/Creatinine Ratio 17.1 (14-18) Glucose 96 (74-106) mg/dL Calcium 9.1 (8.5-10.1) mg/dL Total Bilirubin 0.6 (0.2-1.0) mg/dL AST 29 (15-37) U/L ALT 26 (16-63) U/L Alkaline Phosphatase 79 (46-116) U/L Total Protein 6.8 (6.4-8.2) g/dl Albumin 3.9 (3.4-5.0) g/dl Globulin 2.9 gm/dL Albumin/Globulin Ratio 1.3 (1-2) Urine Color Brown H (Yellow) Urine Appearance Cloudy H (Clear) Urine pH 5.5 (5.0-8.0) Ur Specific [place] 1.020 (1.005-1.030) Urine Protein 3+ H (Negative) Urine Glucose (UA) Negative (Negative) Urine Ketones 1+ H (Negative) Urine Occult Blood 3+ H (Negative) Urine Nitrite Negative (Negative) Urine Bilirubin 3+ H (Negative) Urine Urobilinogen 2.0 H (0.2-1.0) Ur Leukocyte Esterase 3+ H (Negative) Urine RBC Too numerous to cnt H (0-5) /hpf Urine WBC See comment (0-5) /hpf Ur Epithelial Cells Not seen (0-5) /hpf Urine Bacteria Not seen (FEW) /hpf Urine Mucus Not seen (FEW) /hpf Blood Type Gel Antibody Screen 12/21/17 Range/Units 12:55 WBC (4.23-9.07) K/mm3 RBC (4.63-6.08) M/mm3 Hgb (13.7-17.5) gm/L Hct (40.1-51.0) % MCV (79.0-92.2) fl MCH (25.7-32.2) pg MCHC (32.2-35.5) g/dl RDW Std Deviation (35.1-43.9) fL Plt Count (163-337) K/mm3 MPV (9.4-12.3) fl Neut % (Auto) (34.0-67.9) % Lymph % (Auto) (21.8-53.1) % Clarke % (Auto) (5.3-12.2) % Eos % (Auto) (0.8-7.0) Baso % (Auto) (0.1-1.2) % Neut # (Auto) (1.78-5.38) K/mm3 Lymph # (Auto) (1.32-3.57) K/mm3 Clarke # (Auto) (0.30-0.82) K/mm3 Eos # (Auto) (0.04-0.54) K/mm3 Baso # (Auto) (0.01-0.08) K/mm3 Sodium (136-145) mEq/L Potassium (3.5-5.1) mEq/L Chloride (98-107) mEq/L Carbon Dioxide (21-32) mEq/L Anion Gap (5-15) BUN (7-18) mg/dL Creatinine (0.7-1.3) mg/dL Est Cr Clr Drug Dosing mL/min Estimated GFR (MDRD) (>60) mL/min BUN/Creatinine Ratio (14-18) Glucose (74-106) mg/dL Calcium (8.5-10.1) mg/dL Total Bilirubin (0.2-1.0) mg/dL AST (15-37) U/L ALT (16-63) U/L Alkaline Phosphatase (46-116) U/L Total Protein (6.4-8.2) g/dl Albumin (3.4-5.0) g/dl Globulin gm/dL Albumin/Globulin Ratio (1-2) Urine Color (Yellow) Urine Appearance (Clear) Urine pH (5.0-8.0) Ur Specific [place] (1.005-1.030) Urine Protein (Negative) Urine Glucose (UA) (Negative) Urine Ketones (Negative) Urine Occult Blood (Negative) Urine Nitrite (Negative) Urine Bilirubin (Negative) Urine Urobilinogen (0.2-1.0) Ur Leukocyte Esterase (Negative) Urine RBC (0-5) /hpf Urine WBC (0-5) /hpf Ur Epithelial Cells (0-5) /hpf Urine Bacteria (FEW) /hpf Urine Mucus (FEW) /hpf Blood Type A POSITIVE Gel Antibody Screen Negative Meds: Medications Discontinued Medications Generic Name Dose Route Start Last Admin Trade Name Freq PRN Reason Stop Dose Admin Hydromorphone HCl 1 mg 12/21/17 12:48 12/21/17 13:00 Dilaudid IVPUSH 12/21/17 12:49 1 mg ONETIME STA Administration Hydromorphone HCl 1 mg 12/21/17 14:42 12/21/17 14:48 Dilaudid IVPUSH 12/21/17 14:43 1 mg ONETIME ONE Administration Sodium Chloride 1,000 mls @ 150 mls/hr 12/21/17 13:00 12/21/17 13:03 Normal Saline IV 150 mls/hr ASDIRECTED [place] Administration Sodium Chloride 1,000 mls @ 250 mls/hr 12/21/17 13:17 Normal Saline IV 12/21/17 17:16 ONETIME ONE Iopamidol 100 ml 12/21/17 13:49 12/21/17 14:02 Isovue-300 (61%) IVPUSH 12/21/17 13:50 100 ml ONETIME ONE Administration Ondansetron HCl 4 mg 12/21/17 12:48 12/21/17 12:58 Zofran IVPUSH 12/21/17 12:49 4 mg ONETIME ONE Administration Sodium Chloride 10 ml 12/21/17 13:49 12/21/17 14:02 Saline Flush FLUSH 12/21/17 13:50 10 ml ONETIME ONE Administration - Re-Assessments/Exams Free Text/Narrative Re-Assessment/Exam: 12/21/17 12:44 A trauma code minor was called on the patient. I have interviewed and examined the patient. 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 There is no visible injury to his right flank, such as swelling, erythema, ecchymosis, or abrasion. Nevertheless, I'm going to recommend that the patient undergo a CT scan of the abdomen and pelvis with IV contrast, to evaluate for a fractured kidney. Departure - Departure Time of Disposition: 15:30
[2017-12-21] MEDS ORDERED: HYDROmorphone 0.5 MG/0.5 ML SYRINGE IVPUSH STA (12:48)
[2017-12-21] MEDS ORDERED: Ondansetron 4 MG/2 ML SDV IVPUSH ONE (12:48)
[2017-12-21] MEDS ORDERED: Sodium Chloride 0.9% 1,000 ML IV SCH (13:00)
[2017-12-21] MEDS ORDERED: Sodium Chloride 0.9% 1,000 ML IV ONE (13:17)
[2017-12-21] MEDS ORDERED: Sodium Chloride 0.9% 10 ML Syringe FLUSH ONE (13:49)
[2017-12-21] MEDS ORDERED: Iopamidol 612 MG/ML 100 ML Bottle IVPUSH ONE (13:49)
[2017-12-21] MEDS ORDERED: HYDROmorphone 0.5 MG/0.5 ML SYRINGE IVPUSH ONE (14:42)
--- NOTE | 2017-12-21 14:50 | CT ---
CT abdomen and pelvis Technique: Multiple axial sections were obtained during the arterial phase from above the dome of the diaphragm inferiorly through the pubic symphysis. Intravenous contrast was utilized. Portal phase imaging then obtained through the abdomen and pelvis as well as delayed images. Findings: Nonfunctioning left kidney is noted. Left kidney shows minimal remaining cortex with dilated renal pelvis. This is likely chronic as there is mild compensatory hypertrophy of the right kidney which has a length of around 13 cm. Minimal low density area is noted within the right kidney apex. This does not appear as a cyst and could represent a minimal renal contusion. No abnormal fluid collections are seen around the kidneys. Collecting systems are intact on the delayed images. No filling defects are seen within the right collecting system. Right kidney otherwise appears normal. Delayed images show contrast within the right ureter and within the bladder. Visualized lung bases show minimal left basilar atelectasis. Liver shows no focal parenchymal abnormality. Spleen appears within normal limits. Adrenal glands show no nodule. Pancreas is normal. Aorta shows no aneurysmal dilatation. No retroperitoneal adenopathy or mesenteric abnormalities are seen. No pelvic abnormality seen. No free fluid is seen. No inflammatory change is seen. No bowel dilatation is appreciated. Bone window settings were reviewed which show no acute abnormality. Impression: 1. Minimal low density finding within the upper right kidney apex possibly representing minimal contusion (grade 1 injury). 2. Mild hypertrophy of the right kidney secondary to nonfunctioning left kidney. 3. No other acute findings are seen on CT study of the abdomen and pelvis. Diagnostic code #3
[2017-12-21 15:49] VITALS: BP 122/74
== END 2017-12-21 15:45 | disposition home or self-care (01) ==
LOC: JD.ED 12:11
DX: S37.011A Minor contusion of right kidney, initial encounter (principal); N28.81 Hypertrophy of kidney; W19.XXXA Unspecified fall, initial encounter; Y99.0 Civilian activity done for income or pay
CPT/HCPCS: 36415; 74177; 80053; 81001; 85025; 86850; 86900; 86901; 96361; 96374; 96375; 96376; 99284; J1170; J2405; J7040; J7050; Q9967

== ENCOUNTER 2019-09-15 08:30 | Emergency (ER) | payer BC ==
[2019-09-15 08:42] VITALS: BP 136/107; PULSE 68
--- NOTE | 2019-09-15 08:57 | EDM.PDOC ---
ED HPI GENERAL MEDICAL PROBLEM - General Chief Complaint: Respiratory Problem Stated Complaint: CHEST CONGESTION AND FEVER Time Seen by Provider: 09/15/19 08:49 - History of Present Illness INITIAL COMMENTS - FREE TEXT/NARRATIVE: 38-year-old male presents the emergency room with increasing cough Patient denies any fevers or chills he is not achy all over. Patient gets bronchitis on a fairly regular basis. Patient is a daily smoker. He is treated for gastroesophageal reflux he has had a GI bleed in the past and is treated for depression and anxiety. Patient is not any GI symptoms lately including nausea vomiting or diarrhea. No abdominal pain. He does not have chest discomfort or pain. - Related Data Allergies Allergy/AdvReac Type Severity Reaction Status Date / Time No Known Allergies Allergy Verified 09/15/19 08:42 Home Meds: Home Meds Omeprazole 40 mg PO DAILY 06/11/16 [History] Citalopram Hydrobromide [Celexa] 30 mg PO DAILY 12/21/17 [History] busPIRone HCl [busPIRone] 0 mg PO BID 12/28/18 [History] Past Medical History HEENT History: Reports: Impaired Vision Other HEENT History: wears eyeglasses. 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 Muscle tear with surgical repair. Social & Family History - Family History Family Medical History: Noncontributory Psychiatric: Reports: Anxiety - Tobacco Use Smoking Status *Q: Current Every Day Smoker Years of Tobacco use: 20 Packs/Tins Daily: 1 - Caffeine Use Caffeine Use: Reports: Coffee, Energy Drinks, Soda - Recreational Drug Use Recreational Drug Use: No ED ROS GENERAL - Review of Systems Review Of Systems: See Below Constitutional: Reports: No Symptoms HEENT: Reports: No Symptoms Respiratory: Reports: Cough, Sputum. Denies: Shortness of Breath, Hemoptysis Cardiovascular: Reports: No Symptoms Endocrine: Reports: No Symptoms GI/Abdominal: Reports: No Symptoms : Reports: No Symptoms Musculoskeletal: Reports: No Symptoms Skin: Reports: No Symptoms Neurological: Reports: No Symptoms ED EXAM, GENERAL - Physical Exam Exam: See Below Exam Limited By: No Limitations General Appearance: Alert, No Apparent Distress Ears: Normal External Exam, Normal Canal, Hearing Grossly Normal, Normal TMs Nose: Normal Inspection, Normal Mucosa, No Blood Throat/Mouth: Normal Inspection, Normal Lips, Normal Teeth, Normal Gums, Normal Oropharynx, Normal Voice, No Airway Compromise Head: Atraumatic, Normocephalic Neck: Normal Inspection, Supple, Non-Tender, Full Range of Motion. No: Lymphadenopathy (L), Lymphadenopathy (R) Respiratory/Chest: No Respiratory Distress, Lungs Clear, Normal Breath Sounds Cardiovascular: Regular Rate, Rhythm, No Edema, No Murmur GI/Abdominal: Normal Bowel Sounds, Soft, Non-Tender Back Exam: Normal Inspection. No: CVA Tenderness (L), CVA Tenderness (R) Extremities: Normal Inspection Course - Vital Signs Last Recorded V/S: Last Vital Signs Temp 37.1 C 09/15/19 08:40 Pulse 68 09/15/19 08:40 Resp 16 09/15/19 08:40 BP 136/107 H 09/15/19 08:40 Pulse Ox 99 09/15/19 08:40 - Orders/Labs/Meds Orders: Active Orders 24 hr Category Date Time Status Chest 2V [CR] Stat Exams 09/15/19 09:40 Taken - Re-Assessments/Exams Free Text/Narrative Re-Assessment/Exam: 09/15/19 09:01 This time we will check a chest x-ray. Patient is not running a fever does not sound suspicious for Covid 19 certainly does not meet criteria for screening per guidelines from the [facility] department dated September 10, 2019. 09/15/19 10:48 Chest x-ray is unremarkable for acute changes he is perhaps slightly hyperinflated which could be related to his smoking history. Discussed this with the patient and strongly urged him to quit smoking at this point his cough with further questioning is comes and goes it seems to be in the mornings is probably more consistent with a smoker's cough. I do not think treatment for bronchitis is indicated at this point. We will discharge at this time Departure - Departure Time of Disposition: 10:49 Disposition: Home, Self-Care 01 Clinical Impression: Cough - Discharge Information Referrals: Kalani Jamison MD [Primary Care Provider] - Forms: ED Department Discharge Additional Instructions: Return to the emergency room with any questions problems or worsening symptoms. It is extremely important that you quit smoking at this time. It appears that a lot of your symptoms are related to this Sepsis Event Note - Evaluation Sepsis Screening Result: No Definite Risk - Focused Exam Vital Signs: Vital Signs Temp Pulse Resp BP Pulse Ox 09/15/19 08:40 37.1 C 68 16 136/107 H 99 Date Exam was Performed: 09/15/19 Time Exam was Performed: 10:48 - My Orders Last 24 Hours: My Active Orders 09/15/19 09:40 Chest 2V [CR] Stat - Assessment/Plan Last 24 Hours: My Active Orders 09/15/19 09:40 Chest 2V [CR] Stat
--- NOTE | 2019-09-15 11:14 | CR ---
Chest: 2 views of the chest were obtained. Comparison: Prior chest x-ray of 04/14/18. Heart size and mediastinum are normal. Lungs are clear with no acute parenchymal change. Bony structures appear within normal limits. Impression: 1. Nothing acute is appreciated on 2 view chest x-ray. Diagnostic code #1 This report was dictated in MDT
== END 2019-09-15 11:00 | disposition home or self-care (01) ==
LOC: JD.ED 08:30
DX: R05 Cough (principal); F17.210 Nicotine dependence, cigarettes, uncomplicated; F41.9 Anxiety disorder, unspecified; F32.9 Major depressive disorder, single episode, unspecified; Z79.899 Other long term (current) drug therapy
CPT/HCPCS: 71046; 71046-26; 99282; 99283-25

== ENCOUNTER 2020-12-03 15:57 | Emergency (ER) | payer OTHER ==
[2020-12-03 16:24] VITALS: BP 128/96; PULSE 82
--- NOTE | 2020-12-03 16:35 | EDM.PDOC ---
<Charley Ford V - Last Filed: 12/03/20 17:26> ED HPI GENERAL MEDICAL PROBLEM - General Chief Complaint: Laceration Stated Complaint: RT THUMB LAC Time Seen by Provider: 12/03/20 16:19 Source of Information: Reports: Patient, RN Notes Reviewed History Limitations: Reports: No Limitations - History of Present Illness INITIAL COMMENTS - FREE TEXT/NARRATIVE: Patient is a 40-year-old male who presents to the ER for the evaluation of a right thumb laceration. Patient was using a table saw at around 3 PM, when he ended up lacerating his right thumb on the anterior surface, this is roughly 4 cm in length, jagged on the edges, and gaping at least half a centimeter. He has no apparent tendinous injury, but is complaining of some tingling in his distal thumb. Patient notes he is right-hand dominant, he believes that he is up-to-date on his tetanus vaccine. Patient is denying pain in his thumb, but states it is throbbing. Patient denies any other sick-like symptoms, fever/chills, cough/shortness of breath, nausea/vomiting/diarrhea. Treatments CELL COVERER: Reports: Other (see below) Other Treatments CELL COVERER: none Right Finger-Thumb Pain Score (Numeric/FACES): 3 - Related Data Allergies Allergy/AdvReac Type Severity Reaction Status Date / Time No Known Allergies Allergy Verified 09/15/19 08:42 Home Meds: Home Meds Omeprazole 40 mg PO DAILY 06/11/16 [History] Citalopram Hydrobromide [Celexa] 30 mg PO DAILY 12/21/17 [History] busPIRone HCl [busPIRone] 0 mg PO BID 12/28/18 [History] Hydrocodone/Acetaminophen [Hydrocodone-Acetamin 5-325 mg] 1 each PO Q6H PRN #12 tablet 12/03/20 [Rx] Melatonin 10 mg PO DAILY 12/03/20 [History] Venlafaxine [Effexor XR] 150 mg PO DAILY 12/03/20 [History] cephALEXin [Cephalexin] 500 mg PO QID 7 Days #28 capsule 12/03/20 [Rx] traMADol [Ultram] 50 mg PO BID 12/03/20 [History] Past Medical History HEENT History: Reports: Impaired Vision Other HEENT History: wears eyeglasses. 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 Musculoskeletal History: Reports: Back Pain, Chronic, Fracture, SLE Other Musculoskeletal History: Scoliosis Neurological History: Reports: Migraines Psychiatric History: Reports: Anxiety, Depression, PTSD Dermatologic History: Reports: Eczema, Psoriasis - Infectious Disease History Infectious Disease History: Reports: Chicken Pox - Past Surgical History GI Surgical History: Reports: Hernia, Abdominal, Hernia, Inguinal Male Surgical History: Reports: Other (See Below) Other Male Surgeries/Procedures: detached left kidney, 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 Muscle tear with surgical repair. Social & Family History - Family History Family Medical History: No Pertinent Family History Psychiatric: Reports: Anxiety - Tobacco Use Tobacco Use Status *Q: Current Every Day Tobacco User Years of Tobacco use: 11 Packs/Tins Daily: 1 - Caffeine Use Caffeine Use: Reports: Coffee, Soda - Recreational Drug Use Recreational Drug Use: No ED ROS GENERAL - Review of Systems Review Of Systems: Comprehensive ROS is negative, except as noted in HPI. ED EXAM, SKIN/RASH Exam: See Below Exam Limited By: No Limitations General Appearance: Alert, WD/WN, No Apparent Distress Respiratory/Chest: No Respiratory Distress, Lungs Clear, Normal Breath Sounds, No Accessory Muscle Use, Chest Non-Tender Cardiovascular: Normal Peripheral Pulses, Regular Rate, Rhythm, No Edema Peripheral Pulses: 2+: Radial (L), Radial (R) Extremities: Normal Range of Motion, Normal Capillary Refill Neurological: Alert, Oriented, Normal Cognition, No Motor/Sensory Deficits Psychiatric: Normal Affect, Normal Mood Skin: Warm, Dry, Normal Color, No Rash, Wound/Incision (Over the anterior right thumb surface, roughly 4 cm in length by 5 mm gaping open, bleeding is controlled.) Course - Re-Assessments/Exams Free Text/Narrative Re-Assessment/Exam: 12/03/20 16:35 Patient presents to the ER for right thumb laceration, case was discussed with Dr. Dawkins, due to the severity of the wound. Highly likely this could benefit from skin grafting versus orthopedic surgical management. We will get x-rays for initial evaluation, and then contact hand surgery about wound management. 12/03/20 16:47 X-rays demonstrate no fracture or bony injury. Dr. Dawkins was in to evaluate the patient and will repair the wound for today's purposes. I did discuss his case with Dr. Geronimo at [facility] and he says to start keflex, and have him follow up on sunday. Departure - Departure Time of Disposition: 17:13 Disposition: Home, Self-Care 01 Condition: Good Clinical Impression: Laceration of right thumb with tendon involvement Qualifiers: Encounter type: initial encounter Qualified Code(s): S61.011A - Laceration without foreign body of right thumb without damage to nail, initial encounter - Discharge Information *PRESCRIPTION DRUG MONITORING PROGRAM REVIEWED*: Yes *COPY OF PRESCRIPTION DRUG MONITORING REPORT IN PATIENT CLIFF: No Prescriptions: cephALEXin [Cephalexin] 500 mg PO QID 7 Days #28 capsule Hydrocodone/Acetaminophen [Hydrocodone-Acetamin 5-325 mg] 1 each PO Q6H PRN #12 tablet PRN Reason: Pain Instructions: Sutures, [place], or Adhesive Wound Closure, [id number] Referrals: Kalani Jamison MD [Primary Care Provider] - Forms: ED Department Discharge Additional Instructions: You have been evaluated in the ED for your right thumb laceration. Your x-ray demonstrated no acute fracture or other bony injury. Your wound was repaired with sutures, these should stay in for 10 to 14 days. Please use ice as tolerated to the affected area. You may take Tylenol 500 mg or ibuprofen 600mg q6 hrs for pain relief. Please do so until you have a tolerable level of pain with activity. Do not exceed 4000mg Tylenol, Do not exceed 3200mg ibuprofen in a 24 hour time period. You were given a prescription for a strong pain medication, hydrocodone/acetaminophen 5/325, please take 1 tab every 6 hours as needed for pain not relieved by Tylenol or ibuprofen alone. Please note this does contain Tylenol in it, so do not take more than 4000 mg in a 24-hour time span. These medications can be addictive, so please take as few as possible to achieve adequate pain control. These meds can also be quite constipating, recommend that you increase your oral fluid intake and take a stool softener like MiraLAX while taking these medications. You have also been started on oral antibiotics, you will need to take 1 tablet 4 times a day until gone. Medications have been electronically prescribed to the [place] pharmacy located in the [facility] grocery store, as you will need to start taking these medications after you leave and your preferred pharmacy will not be open for you to have these filled. The antibiotics can take up to 48 hours to start being beneficial. Please call Ortho for follow-up and further evaluation; due to this being a hand injury, you will need to follow-up in [facility], their clinic number [phone]. Please call them early Sunday morning and tell them you were seen in the ER for a thumb laceration, and that Dr. Geronimo wanted you to follow-up with hand specialist. Please return to ED if your symptoms should change or worsen. Sepsis Event Note (ED) - Evaluation Sepsis Screening Result: No Definite Risk <Yinka Dawkins - Last Filed: 12/03/20 17:41> ED SKIN PROCEDURES - Laceration/Wound Repair Right Anterior Distal Digit - 1st (Thumb) Appearance: Subcutaneous, Clean Distal NVT: Other (Screw was intact but the patient did have paresthesias tip of his tongue on the radial aspect of the distal thumb.) Anesthetic Type: Local Local Anesthesia - Bupivicaine (Marcaine): 0.5% Plain Local Anesthetic Volume: Other (10 cc) Skin Prep: Chlorhexidine (Hibiciens) Saline Irrigation (cc's): 100 Exploration/Debridement/Repair: Wound Explored, In a Bloodless Field Closed with: Sutures Lac/Wound length In cm: 4.0 Suture Size: 3-0 # of Sutures: 10 Suture Type: Nylon, Interrupted, Simple Course - Vital Signs Last Recorded V/S: Last Vital Signs Temp 36.4 C 12/03/20 16:22 Pulse 82 12/03/20 16:22 Resp 20 12/03/20 16:22 BP 128/96 H 12/03/20 16:22 Pulse Ox 98 12/03/20 16:22 - Orders/Labs/Meds Orders: Active Orders 24 hr Category Date Time Status Fingers Thumb Rt F5 [CR] Stat Exams 12/03/20 16:27 Taken Meds: Medications Discontinued Medications Generic Name Dose Route Start Last Admin Trade Name Freq PRN Reason Stop Dose Admin Bupivacaine HCl 10 ml 12/03/20 16:45 12/03/20 16:50 Bupivacaine 0.5% 10 Ml Sdv INJECT 12/03/20 16:46 10 ml ONETIME ONE Administration Lidocaine HCl Confirm 12/03/20 17:10 Lidocaine 1% 10 Ml Mdv Administered 12/03/20 17:11 Dose 10 ml .ROUTE .[facility] ONE - Re-Assessments/Exams Free Text/Narrative Re-Assessment/Exam: 12/03/20 16:59 Digital block performed using 0.5% bupivacaine. Patient tolerated procedure well. 12/03/20 17:40 wound was anesthetized with a little bit more bupivacaine on the wound. Was then sutured using 3-0 Ethilon suture times 10 sutures in total. Patient will return to have sutures removed in 10 days time. In the interim he will apply topical antibiotic such as bacitracin or Polysporin once daily after cleansing it with soap and water. Sepsis Event Note (ED) - Focused Exam Vital Signs: Vital Signs Temp Pulse Resp BP Pulse Ox 12/03/20 16:22 36.4 C 82 20 128/96 H 98
[2020-12-03] MEDS ORDERED: Bupivacaine 0.5% 10 ML SDV INJECT ONE (16:45)
[2020-12-03] MEDS ORDERED: Lidocaine 1% 10 ML MDV ONE (17:10)
--- NOTE | 2020-12-04 12:08 | CR ---
Right thumb: 3 views centered to the right thumb were obtained. Comparison: No prior thumb or hand exam is available. Joint spaces are fairly well maintained. No acute fracture or other osseous abnormality is appreciated. No soft tissue foreign body is seen. Mild soft tissue injury is noted. Impression: 1. Soft tissue injury. 2. No other acute abnormality is seen. Diagnostic code #1
== END 2020-12-03 17:38 | disposition home or self-care (01) ==
LOC: JD.ED 15:57 → SUPCPDRO 15:57 → JD.ED 17:38
DX: S61.011A Laceration without foreign body of right thumb without damage to nail, initial encounter (principal); M41.9 Scoliosis, unspecified; Z72.0 Tobacco use; Z79.899 Other long term (current) drug therapy; W31.2XXA Contact with powered woodworking and forming machines, initial encounter
CPT/HCPCS: 12002; 73140; 99283; J3490